=== PATIENT | female | born 1975 | race Caucasian/White ===

== ENCOUNTER 2021-07-30 16:16 | Emergency (ER) | payer OTHER ==
[~2021-07-30] VITALS: Ht 162.6 cm; Wt 58.1 kg
--- NOTE | 2021-07-30 17:06 | NUR ---
[email or web address], medical screening exam continues
[2021-07-30] MEDS ORDERED: RALT400T PO (17:15)
[2021-07-30] MEDS ORDERED: LAMIVUDINE/ZIDOVUDIN 150-300MG TABLET PO ONE (17:15)
[2021-07-30] MEDS ORDERED: RALTEGRAVIR POTASSIUM 400 MG TABLET PO ONE ×2 (17:15→17:24)
[2021-07-30] MEDS ORDERED: EMTR1TAB6 PO (17:15)
--- NOTE | 2021-07-30 17:22 | NUR ---
Patient refused blood draw, notified.
[2021-07-30] MEDS ORDERED: LAMIVUDINE/ZIDOVUDIN 150-300MG TABLET ONE (17:24)
--- NOTE | 2021-07-30 17:28 | NUR ---
Patient wants to leave, MD notified.
--- NOTE | 2021-07-30 17:31 | NUR ---
Patient does not wish to proceed with medical care recommended by Dr. Mancera. Patient given information related to possible complications, up to and including , which could occur as a result of leaving the hospital at this time. Patient verbalized understanding of risks involved due to leaving against medical advice. Patient signed AMA form.
[2021-07-30 17:34] VITALS: BP 124/80
== END 2021-07-30 17:31 | disposition left against medical advice (07) ==
LOC: ER 16:39
DX: S61.230A Puncture wound without foreign body of right index finger without damage to nail, initial encounter (principal); W26.8XXA Contact with other sharp object(s), not elsewhere classified, initial encounter; Y93.89 Activity, other specified; Y92.215 Trade school as the place of occurrence of the external cause; Y99.8 Other external cause status; Z77.21 Contact with and (suspected) exposure to potentially hazardous body fluids; E07.9 Disorder of thyroid, unspecified
CPT/HCPCS: A4663